=== PATIENT | female | born 1965 | race Caucasian/White ===

== ENCOUNTER 2016-10-13 18:27 | Emergency (ER) | payer OTHER ==
[~2016-10-13] VITALS: Ht 154.9 cm; Wt 99.8 kg
[~2016-10-13 18:27] MED LIST: ABILIFY 2 MG2 MG; AMOXICILLIN 50500 MG PO; AUGMENTIN 875-1 EACH PO; AUGMENTIN 875875 MG PO; BENTYL20 MG PO; BUSPAR 5 MG TABL5 M1; BUSPAR15 MG PO; BUSPIRONE HCL10 MG PO; CIPRODEX OTIC7.5 ML OT; CITRATE OF MAG296 ML PO; CYMBALTA60 MG PO; FLEXERIL PO; HYDROXYZINE HCL25 M1 PO; LASIX 20 MG TAB20 MG PO; NORCO 5-325 TA1 EACH PO; POLYMYXIN B/TMP10 ML OPHTHALMIC; PREDNISONE 10 M10 M1 PO; PREDNISONE 20 M20 MG PO; PROVENTIL HFA6.7 G1 INH; PROZAC 20 MG20 MG PO; PROZAC20 MG PO; TESSALON PERLE100 MG PO; TESSALON200 MG PO; VICODIN 5-5001 EACH PO; WELLBUTRIN SR100 MG PO; ZOFRAN ODT4 MG PO; ZPAK PO
[2016-10-13] MEDS ORDERED: HYDROCODONE-AP1 EAC6 PO (18:39)
[2016-10-13] MEDS ORDERED: IBUPROFEN 600600 M1 PO (19:39)
[2016-10-13] MEDS ORDERED: FLEXERIL PO (19:39)
[2016-10-13 19:45] VITALS: BP 152/87
== END 2016-10-13 19:45 | disposition home or self-care (01) ==
LOC: ER 18:27
DX: S00.93XA Contusion of unspecified part of head, initial encounter (principal); M54.2 Cervicalgia; M54.6 Pain in thoracic spine; F32.9 Major depressive disorder, single episode, unspecified; J44.9 Chronic obstructive pulmonary disease, unspecified; I10 Essential (primary) hypertension; Z90.49 Acquired absence of other specified parts of digestive tract; Z87.891 Personal history of nicotine dependence; Z88.5 Allergy status to narcotic agent; Z88.7 Allergy status to serum and vaccine; Z88.8 Allergy status to other drugs, medicaments and biological substances; W01.0XXA Fall on same level from slipping, tripping and stumbling without subsequent striking against object, initial encounter; Y93.9 Activity, unspecified; Y92.9 Unspecified place or not applicable; Y99.9 Unspecified external cause status